=== PATIENT | female | born 1935 | race Caucasian/White ===

== ENCOUNTER 2016-03-16 10:54 | Outpatient (CLI) | payer OTHER ==
--- NOTE | 2016-03-16 11:40 | DIAGNOSTIC IMAGING REPORT ---
PROCEDURE: MG UNILAT SCREEN-RIGHT W/CAD INDICATION: Right screening. Left mastectomy 92,010). TECHNIQUE: CC and MLO digital views. COMPARISON: Compared to 12/24/2014, 12/21/2013, and 12/19/2012. FINDINGS: Computer-aided detection applied. Mildly dense with a few microcalcifications. No change. IMPRESSION: 1. Negative right mammogram. RESULT CODE: 1- Negative. A. A negative report should not delay biopsy if a dominant or clinically suspicious mass is present. 10-15% of cancers are not identified by x-ray. B. A negative report may reinforce clinical impression. C. Adenosis and dense breasts may obscure an underlying neoplasm. D. False positive reports average 6-10%. E.. A yearly screening mammogram is recommended. A reminder letter will be scheduled.
== END 2016-03-16 23:00 ==
LOC: MAM SRH 10:54
DX: Z12.31 Encounter for screening mammogram for malignant neoplasm of breast (principal); Z85.3 Personal history of malignant neoplasm of breast